=== PATIENT | female | born 1990 | race African-American/Black ===

== ENCOUNTER 2021-06-11 04:07 | Emergency (ER) | payer BC ==
[2021-06-11 04:14] VITALS: BP 111/66; PULSE 77; RESP 11; TEMP 98.3
--- NOTE | 2021-06-11 04:24 | ED ---
General Adult HPI - General Chief complaint: Recheck/Abnormal Lab/Rx Stated complaint: Covid Test Time Seen by Provider: 06/11/21 04:19 Source: patient, family Mode of arrival: ambulatory Limitations: no limitations - History of Present Illness Initial comments: This patient is a 31-year-old woman who is here strictly for a COVID-19 test. Patient denies any medical complaints. Patient declines medical screening exam. - Related Data Allergies Allergy/AdvReac Type Severity Reaction Status Date / Time No Known Allergies Allergy Verified 06/11/21 04:13 Review of Systems ROS Statement: Those systems with pertinent positive or pertinent negative responses have been documented in the HPI. ROS Other: All systems not noted in ROS Statement are negative. Past Medical History Past Medical History: No Reported History History of Any Multi-Drug Resistant Organisms: None Reported Past Surgical History: No Surgical Hx Reported Past Psychological History: No Psychological Hx Reported Smoking Status: Never smoker Past Alcohol Use History: None Reported Past Drug Use History: None Reported General Exam - General Exam Comments Initial Comments: Declines screening exam Limitations: no limitations Course Vital Signs 06/11/21 04:10 Temperature 98.3 F Pulse Rate 77 Respiratory 11 L Rate Blood Pressure 111/66 O2 Sat by Pulse 97 Oximetry Disposition Clinical Impression: Encounter for immunological test Disposition: HOME SELF-CARE Condition: Good Is patient prescribed a controlled substance at d/c from ED?: No Referrals: None,Stated [Primary Care Provider] - 1-2 days
== END 2021-06-11 04:53 | disposition home or self-care (01) ==
LOC: EC 04:07
DX: Z20.822 Contact with and (suspected) exposure to COVID-19 (principal)
CPT/HCPCS: 87635; 99282